=== PATIENT | female | born 2000 | race Caucasian/White ===

== ENCOUNTER 2020-02-22 14:54 | Emergency (ER) | payer OTHER ==
[~2020-02-22] VITALS: Ht 154.9 cm; Wt 53.8 kg
--- NOTE | 2020-02-22 15:56 | NUR ---
PATIENT SCHEDULING MANAGER: PT TO ROOM FROM SIRI GUERRERO.
--- NOTE | 2020-02-22 16:01 | NUR ---
FIRST ENCOUNTER: PT PRESENTED TO ED D/T 20 LB WT LOSS FOR ONE MONTH. PT ALSO STATES DOES NOT HAVE AN INTEREST IN EATING.
[2020-02-22] MEDS ORDERED: ESCI10TA10 PO (16:05)
[2020-02-22] MEDS ORDERED: MAALOX/HYOSCYAMINE/LIDOCAINE 45 ML BTL ONE (16:09)
--- NOTE | 2020-02-22 16:11 | NUR ---
PT MEDICATED PER EMAR.
[2020-02-22 16:25] LABS: BASOPHILS # (AUTO) 0.04 x10^3/uL (0-0.3); BASOPHILS % (AUTO) 1 % (0-1); EOSINOPHILS # (AUTO) 0.07 x10^3/uL (0-0.8); EOSINOPHILS % (AUTO) 1 % (1-7); LYMPHOCYTES # (AUTO) 1.94 x10^3/uL (1-6.1); LYMPHOCYTES % (AUTO) 25 % (22-44); MD NO; MEAN CORPUSCULAR HEMOGLOBIN 29.2 pg (27.0-34.8); MEAN CORPUSCULAR HGB CONC 33.6 g/dL (32.4-35.8); MEAN PLATELET VOLUME 9.4 fL (7.4-10.4); MONOCYTES % (AUTO) 10 % (2-9); NEUTROPHILS # (AUTO) 4.88 x10^3/uL (1.8-8.0); NEUTROPHILS % (AUTO) 63 % (42-75); PLATELET COUNT 299 x10^3/uL (130-400); RED BLOOD COUNT 5.05 x10^6/uL (3.82-5.3); RED CELL DISTRIBUTION WIDTH 13.6 % (9.6-15.2)
[2020-02-22] MEDS ORDERED: MAALOX/HYOSCYAMINE/LIDOCAINE 45 ML BTL PO ONE (16:30)
[2020-02-22 16:35] LABS: ALANINE AMINOTRANSFERASE 21 U/L (12-78); ALBUMIN 4.2 g/dL (3.4-5.0); ANION GAP 5 mmol/L (5-15); CALCIUM 9.3 mg/dL (8.5-10.1); CHLORIDE 108 mmol/L (98-107); CREATININE 0.68 mg/dL (0.55-1.02)
[2020-02-22 16:39] LABS: ALKALINE PHOSPHATASE 73 U/L (45-117); BILIRUBIN,TOTAL 0.4 mg/dL (0.2-1.0)
[2020-02-22 17:07] VITALS: BP 140/90
--- NOTE | 2020-02-22 17:07 | NUR ---
PT DC HOME IN A STABLE CONDITION. DC INSTRUCTIONS WERE DISCUSSED WITH PT. PT VERBALIZED UNDERSTANDING. NO FURTHER QUESTIONS OR CONCERNS EXPRESSED AT THAT TIME. PT AMBULATED OUT OF ED WITH A STEADY GAIT.
== END 2020-02-22 17:09 | disposition home or self-care (01) ==
LOC: ED 16:52
DX: K21.0 Gastro-esophageal reflux disease with esophagitis (principal); R63.4 Abnormal weight loss
CPT/HCPCS: 36415; 80053; 83690; 84443; 84703; 85025; 99283

== ENCOUNTER 2020-12-15 09:31 | Inpatient (IN) | payer OTHER ==
[~2020-12-15] VITALS: Ht 172.7 cm; Wt 60.0 kg
[~2020-12-15 09:31] MED LIST: ESCI10TA10 PO
[2020-12-15 09:48] LABS: BASOPHILS % (AUTO) 1 % (0-1); EOSINOPHILS % (AUTO) 3 % (1-7); LYMPHOCYTES % (AUTO) 24 % (22-44); MEAN CORPUSCULAR HEMOGLOBIN 29.3 pg (27.0-34.8); MEAN CORPUSCULAR HGB CONC 33.9 g/dL (32.4-35.8); MEAN PLATELET VOLUME 9.1 fL (7.4-10.4); MONOCYTES % (AUTO) 13 % (2-9); NEUTROPHILS % (AUTO) 60 % (42-75); PLATELET COUNT 294 x10^3/uL (130-400); RED BLOOD COUNT 4.81 x10^6/uL (3.82-5.3)
[2020-12-15 09:52] LABS: MD NO
[2020-12-15 09:56] LABS: ALANINE AMINOTRANSFERASE 19 U/L (12-78); ALBUMIN 4.3 g/dL (3.4-5.0); ANION GAP 10 mmol/L (5-15); CALCIUM 9.2 mg/dL (8.5-10.1); CHLORIDE 108 mmol/L (98-107); CREATININE 0.81 mg/dL (0.55-1.02)
--- NOTE | 2020-12-15 09:56 | NUR ---
PT PRESENTED TO ED UNCONSCIOUS WITH A FRIEND REPORTING OD ON LAMECTIL RESP SHALLOW ORIENTED TO PAIN ONLY AND PUPILS PINPOINT ERP TO THE BS TWO IV STARTED AND NARCAN GIVEN ON FULL MONITORING FRIEND REPORTS PT WAS TALKING OF SI LAST WEEK NO RESPONSE TO NARCAN VSS PLACED CARTER PER ORDER NS FLUID RUNNING IVS PATENT REMAINS RESPONDING TO PAIN ONLY MOVEMENT OF ALL 4 EXTREMITIES
[2020-12-15 10:01] LABS: ALKALINE PHOSPHATASE 81 U/L (45-117); BILIRUBIN,TOTAL 0.5 mg/dL (0.2-1.0)
[2020-12-15 10:02] LABS: SALICYLATE LEVEL < 1.7 mg/dL (2.8-20.0)
--- NOTE | 2020-12-15 10:16 | NUR ---
PT REMAINS ALERT TO PAIN STIMULI ONLY VSS
[2020-12-15] MEDS ORDERED: SODIUM CHLORIDE 0.9% 1,000ML IVBOLUS ONE (10:30)
--- NOTE | 2020-12-15 10:49 | NUR ---
PT TO CT AND RETURNED VS STABLE THROUGHOUT
--- NOTE | 2020-12-15 11:10 | NUR ---
RECEIVED REPORT FROM MARISSA, RESTRAINTS REMOVED, PT CONTINUES TO SLEEP CALMLY, EASILY REASSURED, VISITOR REMAINS AT BS.
--- NOTE | 2020-12-15 11:10 | NUR ---
REPORT GIVEN THE YONATHAN RANGEL
--- NOTE | 2020-12-15 11:11 | NUR ---
ASSUMED CARE OF PT UPON TRANSFER FROM [facility]. PT SLEEPING ON GURNEY, VSS, BED IN THE LOWEST POSITION, BED RAILS UP X2, CALL LIGHT WITHIN REACH. VISITOR AT .
[2020-12-15] MEDS: SODIUM CHLORIDE FLUSH 10ML SYR IVF PRN ×2 (11:21→17:17)
[2020-12-15] MEDS: SODIUM CHLORIDE 0.9% 1,000 ML IV SCH (11:30)
[2020-12-15] MEDS ORDERED: ONDANSETRON ODT 4 MG PO PRN (11:30)
[2020-12-15] MEDS ORDERED: ONDANSETRON 2MG/ML, 2ML IVPush PRN (11:30)
[2020-12-15] MEDS ORDERED: ACETAMINOPHEN 325 MG TABLET PO PRN (11:30)
--- NOTE | 2020-12-15 11:45 | NUR ---
Pt to be admitted to [facility], room 404-1. Report called to [facility].
[2020-12-15 11:54] LABS: AMPHETAMINE SCREEN, URINE Negative (Negative); BARBITURATE SCREEN, URINE Negative (Negative); BENZODIAZEPINE SCREEN, URINE Negative (Negative); CANNABINOID SCREEN, URINE Positive (Negative); COCAINE SCREEN, URINE Negative (Negative); METHADONE SCREEN, URINE Negative (Negative); OPIATE SCREEN, URINE Negative (Negative)
[2020-12-15 12:26] VITALS: BP 107/71
[2020-12-15] MEDS ORDERED: NALOXONE 1 MG/ML, 2ML ONE (18:24)
[2020-12-15 20:41] VITALS: BP 116/72
[2020-12-16] MEDS: SODIUM CHLORIDE 0.9% 1,000 ML IV SCH (01:48)
[2020-12-16 02:37] VITALS: BP 121/80
[2020-12-16 05:19] LABS: BASOPHILS % (AUTO) 0 % (0-1); EOSINOPHILS % (AUTO) 0 % (1-7); LYMPHOCYTES % (AUTO) 8 % (22-44); MEAN CORPUSCULAR HEMOGLOBIN 28.9 pg (27.0-34.8); MEAN CORPUSCULAR HGB CONC 33.1 g/dL (32.4-35.8); MEAN PLATELET VOLUME 9.5 fL (7.4-10.4); MONOCYTES % (AUTO) 8 % (2-9); NEUTROPHILS % (AUTO) 83 % (42-75); PLATELET COUNT 268 x10^3/uL (130-400); RED BLOOD COUNT 4.42 x10^6/uL (3.82-5.3); RED CELL DISTRIBUTION WIDTH 13.6 % (9.6-15.2)
[2020-12-16 05:22] LABS: CHLORIDE 117 mmol/L (98-107)
[2020-12-16 05:25] LABS: MD NO
[2020-12-16 05:31] LABS: ALANINE AMINOTRANSFERASE 27 U/L (12-78); ALBUMIN 3.2 g/dL (3.4-5.0); ALKALINE PHOSPHATASE 66 U/L (45-117); ANION GAP 7 mmol/L (5-15); BILIRUBIN,TOTAL 0.4 mg/dL (0.2-1.0); CALCIUM 8.2 mg/dL (8.5-10.1); TOTAL PROTEIN 6.9 g/dL (6.4-8.2)
[2020-12-16] MEDS ORDERED: POTASSIUM CHLORIDE 20 MEQ TAB.ER.PRT PO ONE (08:00)
[2020-12-16 08:22] VITALS: BP 104/69
[2020-12-16 14:44] VITALS: BP 129/91
[2020-12-16 19:13] VITALS: BP 116/79
== END 2020-12-16 20:03 | DRG 918 ==
LOC: ED 10:22 → EDIP 11:07 → 4WST 12:09
PROVIDERS: ADMIT Family Medicine; ATTEND Internal Medicine
DX: T50.992A Poisoning by other drugs, medicaments and biological substances, intentional self-harm, initial encounter (principal); F31.4 Bipolar disorder, current episode depressed, severe, without psychotic features; E83.51 Hypocalcemia; E87.6 Hypokalemia; F12.90 Cannabis use, unspecified, uncomplicated; F41.9 Anxiety disorder, unspecified; G47.00 Insomnia, unspecified; K21.9 Gastro-esophageal reflux disease without esophagitis; R40.0 Somnolence; Y92.89 Other specified places as the place of occurrence of the external cause
CPT/HCPCS: 36415; 51702; 70450; 71045; 80053; 80299; 80307; 80320; 80329; 82962; 84703; 85025; 93005; 96360; 99285; G0378; G0480; J2310; J7030